=== PATIENT | female | born 1970 | race Caucasian/White ===

== ENCOUNTER → 2016-10-22 | Outpatient (REF) | payer MEDICARE, MEDICAID ==
[2016-10-22 16:23] LABS: BASOPHILS % (AUTO) 1 % (0-2); EOSINOPHILS # (AUTO) 0.4 10^3uL; EOSINOPHILS % (AUTO) 4 % (0-4); MEAN CORPUSCULAR HGB CONC 33.4 g/dL (31.0-37.0); MEAN CORPUSCULAR VOLUME 93 FL (80-100); MEAN PLATELET VOLUME 10.1 FL (6.0-9.5); MONOCYTES # (AUTO) 1.2 X10^3; MONOCYTES % (AUTO) 11 % (3-11); NEUTROPHILS # (AUTO) 6.6 X10^3; NEUTROPHILS % (AUTO) 64 % (51-67); PLATELET COUNT 554 10^3uL (150-450); WHITE BLOOD COUNT 10.27 10^3uL (4.0-11.0)
[2016-10-22 16:29] LABS: ALBUMIN 3.9 g/dL (3.4-5.0); ANION GAP 15.7 MEQ/L (3-15); CALCULATED IONIZED CALCIUM 4.2 mg/dL (3.8-4.6); TOTAL PROTEIN 7.5 g/dL (6.4-8.5)
== END ==
LOC: LAB 15:37
PROVIDERS: ATTEND Family Medicine
DX: D75.1 Secondary polycythemia (principal); J45.998 Other asthma; G47.33 Obstructive sleep apnea (adult) (pediatric); Z86.718 Personal history of other venous thrombosis and embolism; R35.8 Other polyuria; E66.01 Morbid (severe) obesity due to excess calories; R63.5 Abnormal weight gain; R79.89 Other specified abnormal findings of blood chemistry
CPT/HCPCS: 80053; 80061; 83036; 84443; 85025

== ENCOUNTER → 2017-01-21 | Outpatient (CLI) | payer MEDICARE, MEDICAID ==
[~2017-01-21] MED LIST: ALBU0.63 IH; AMIT10TA6 PO; AZIT250T81 PO; CEPH-507 PO; CITA20TA12 PO; FRSM20T GT; POTA99TA16 PO; PRCD5U PO; ROPI1TAB2 PO; SOLI10TA2 PO
--- NOTE | 2017-01-21 16:11 | Diagnostic Imaging Report ---
INDICATION: Foot ulceration. AP, oblique and lateral views of the left foot are obtained. FINDINGS: There is extensive lateral foot swelling. No definite fracture, malalignment or periosteal reaction is seen in this region. There is also extensive swelling posteriorly with large dystrophic calcification along the posterior aspect of the calcaneus near the Achilles insertion. This may represent area of chronic calcific tendinitis or old avulsion injury. This is in region of probable ulceration. No definite bone destruction is seen. IMPRESSION: There is abnormal bony production posteriorly at the level of calcaneus which may be related to old injury. No definite destruction is seen to indicate osteomyelitis. Dictated by: Dictated on workstation # [id number]
== END ==
LOC: RAD 15:22
PROVIDERS: ATTEND Family Medicine
DX: L98.491 Non-pressure chronic ulcer of skin of other sites limited to breakdown of skin (principal)

== ENCOUNTER → 2017-01-21 | Outpatient (REF) | payer MEDICARE, MEDICAID ==
[2017-01-21 15:08] LABS: BASOPHILS % (AUTO) 1 % (0-2); EOSINOPHILS # (AUTO) 0.4 10^3uL; EOSINOPHILS % (AUTO) 4 % (0-4); MEAN CORPUSCULAR HEMOGLOBIN 30.5 PG (26.0-34.0); MEAN CORPUSCULAR HGB CONC 33.5 g/dL (31.0-37.0); MEAN CORPUSCULAR VOLUME 91 FL (80-100); MEAN PLATELET VOLUME 10.1 FL (6.0-9.5); MONOCYTES # (AUTO) 1.2 X10^3; MONOCYTES % (AUTO) 13 % (3-11); NEUTROPHILS # (AUTO) 5.8 X10^3; NEUTROPHILS % (AUTO) 61 % (51-67); PLATELET COUNT 531 10^3uL (150-450); WHITE BLOOD COUNT 9.52 10^3uL (4.0-11.0)
[2017-01-21 15:47] LABS: ALBUMIN 3.9 g/dL (3.4-5.0); ANION GAP 11.8 MEQ/L (3-15); CALCULATED IONIZED CALCIUM 4.3 mg/dL (3.8-4.6); TOTAL PROTEIN 7.3 g/dL (6.4-8.5)
== END ==
LOC: LAB 14:51
PROVIDERS: ATTEND Family Medicine
DX: D75.1 Secondary polycythemia (principal); L98.491 Non-pressure chronic ulcer of skin of other sites limited to breakdown of skin
CPT/HCPCS: 80053; 85025

== ENCOUNTER → 2017-01-23 | Outpatient (CLI) | payer MEDICARE, MEDICAID ==
--- NOTE | 2017-01-23 13:28 | Diagnostic Imaging Report ---
INDICATION: Leg pain larger lying on the right. Nonhealing ulcers. Patient has medial thigh redness and swelling. EXAMINATION: Left lower extremity arterial Doppler dated 01/23/2017. FINDINGS: ABIs were not performed as patient could not tolerate. There is diminished blood flow in the dorsalis pedis artery. The remaining visualized arterial structures demonstrate fairly normal-appearing velocities although there is slight increase in velocity in the left proximal superficial femoral artery with a velocity of 165 cm/s as compared to the common femoral artery where there is velocity of 147 cm/s. Mild elevation in velocity is also noted within the anterior tibial artery as compared to the velocity in the popliteal artery. Below the popliteal artery, biphasic and monophasic flow is seen. Proximal to the popliteal artery predominantly triphasic flow is visualized. Diffuse subcutaneous edema seen throughout the soft tissues. IMPRESSION: 1. Diffuse edema. Given the history of redness and swelling, cellulitis not excluded. 2. Areas of slight elevation of the velocities described above which could be due to areas of proximal narrowing in these regions, but no hemodynamically significant stenosis is appreciated. 3. Poor blood flow in the dorsalis pedis is noted. Overall examination somewhat limited by patient body habitus per the form setter helper. Dictated by: Dictated on workstation # [id number]
== END ==
LOC: RAD 10:53
PROVIDERS: ATTEND Family Medicine
DX: M79.605 Pain in left leg (principal); L98.491 Non-pressure chronic ulcer of skin of other sites limited to breakdown of skin
CPT/HCPCS: 93926